=== PATIENT | female | born 1960 | race Caucasian/White ===

== ENCOUNTER 2017-12-15 15:30 | Outpatient (CLI) | payer MEDICARE, OTHER ==
[2017-12-15 17:15] LABS: #Basophils 0.1 thou/uL (0.0-0.2); #Eosinphils 0.2 thou/uL (0.0-0.7); #Lymphocytes 1.7 thou/uL (1.20-3.40); #Monocytes 0.5 thou/uL (0.11-0.59); #Neutrophils 2.5 thou/uL (1.40-6.50); %Basophils 1.5 % (0.0-1.0); %Eosinophils 4.7 % (0.0-10.0); %Monocytes 9.9 % (0.0-10.0); %Neutrophils 49.9 % (42.0-75.0); Hemoglobin 13.8 g/dL (12.0-16.0); Mean Corpuscular HGB CONC 31.9 g/dL (32.0-36.0); Mean Corpuscular Hemoglobin 31.9 pg (27.0-31.0); Mean Platelet Volume 9.1 fL (7.4-10.4); Platelet Count 207 thou/uL (130-400); RBC Distribution Width 14.2 % (11.5-14.5); Red Blood Cell (RBC) Count 4.33 mill/uL (4.20-5.40); White Blood Cell (WBC) Count 5.1 thou/uL (4.8-10.8)
[2017-12-15 17:28] LABS: Bilirubin Negative (Negative); Blood, Urine Negative (Negative); Clarity CLEAR (Clear); Glucose, Urine (Dipstick) Negative (Negative); Leukocyte Negative (Negative); Nitrite Negative (Negative); Protein, Urine (Dipstick) Negative (Neg-Trace); Specific Gravity, Urine 1.021 (1.002-1.036); Urobilinogen 0.2 mg/dL (0.2-1.0); pH, Urine 6.5 (5.0-9.0)
[2017-12-15 17:33] LABS: Bacteria/HPF None Seen HPF (None Seen); Hyaline Casts/LPF 0-3 HYALINE CAST LPF (0-3 Hyaline); Pathc Cast-AUWi Flag 0.14 (0-2.49); RBC/HPF 0-3 HPF (0-3); Squamous Epithelial 0-3 HPF (0-3); WBC/HPF 0-3 HPF (0-3)
== END 2017-12-15 15:31 | disposition home or self-care (01) ==
LOC: LABBT 15:30
PROVIDERS: ATTEND Orthopaedic Surgery Hand Surgery
DX: Z01.812 Encounter for preprocedural laboratory examination (principal); S60.351A Superficial foreign body of right thumb, initial encounter; M18.0 Bilateral primary osteoarthritis of first carpometacarpal joints
CPT/HCPCS: 81001; 85025

== ENCOUNTER 2017-12-17 06:22 | Day surgery (SDC) | payer MEDICARE, OTHER ==
[2017-12-15 15:49] VITALS: BMI 18.3
[2017-12-17] MEDS ORDERED: Bupivacaine PF 0.5% 30 ML VIAL ONE (08:18)
[2017-12-17] MEDS ORDERED: Betamet Acet/Betamet Na Ph 30 MG/5 ML VIAL ONE (08:18)
[2017-12-17] MEDS ORDERED: Bacitracin Zinc Ointment 30 gm TUBE ONE (08:18)
[2017-12-17] MEDS ORDERED: CEFAZOLIN/Water 2 GM/20 ML SYRINGE ONE (08:25)
[2017-12-17] MEDS ORDERED: Fentanyl 100 MCG/2 ML VIAL ONE ×2 (08:27→10:09)
[2017-12-17] MEDS ORDERED: Ketorolac Tromethamine 30 MG/ML VIAL ONE ×2 (10:04→15:15)
--- NOTE | 2017-12-17 10:57 | RAD ---
LEFT WRIST: Date: 12/17/17 Two fluoroscopic images taken in OR. INDICATION: Fluoroscopic imaging during thumb injection. Joint injection under fluoroscopy. FINDINGS/IMPRESSION: Images show needle overlying the first carpometacarpal joint. POS: ANABEL
--- NOTE | 2017-12-17 10:58 | RAD ---
RIGHT WRIST: Date: 12/17/17 One fluoroscopic image obtained from OR. INDICATION: Right thumb/joint injection. FINDINGS/IMPRESSION: Image shows needle overlying the right first carpometacarpal joint. POS: GUY
[2017-12-17] MEDS ORDERED: HYDROcodone/Acetaminophen 5/325 mg Tablet ONE (11:14)
--- NOTE | 2017-12-17 12:57 | OP ---
DATE OF PROCEDURE: 12/17/2017 PREOPERATIVE DIAGNOSES: 1. Right thumb distal phalanx foreign body granuloma versus callus. 2. 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 PROCEDURES PERFORMED: 1. Right and left thumb carpometacarpal joint injection with 1 mL of Celestone, 0.5% Marcaine, no ep inephrine. 2. Right thumb excisional biopsy of foreign body granuloma with callus over knees. No foreign body sent . TOURNIQUET TIME: Right side 5 minutes. ESTIMATED BLOOD LOSS: Less than 5 mL. ANESTHESIA: General LMA technique. C-ARM USED: Yes. SURGEON: Obed Olvera MD DESCRIPTION OF PROCEDURE: After successful general endotracheal anesthesia, both sides were prepped and draped. First, the left was approached and the table was turned 90 degrees to get the C-arm in a dequate position. We identified the joint under C-arm, identified the needle inside the joint under C-arm in the frontal-sagittal plane and made an injection with 1 mL of Celestone and 0.5 mL of Marcai ne. We made the same approach and injection on the right side, after turning the table 90 degrees to take great advantage of the C-arm intraoperative. Both sides confirmed intra-articular injection site fo r the needle. We exsanguinated the limb, inflated tourniquet to 250 mmHg pressure. 3 to 3.5 mm x 1 to 1.5 mm foreign body area, excised it completely and dissected down to well beyond the subcutaneous fat, fou nd no true foreign body, but removed the entire granulomatous area, which appeared to have external c allus. We then deflated the tourniquet, obtained hemostasis, and put 2 mL of Celestone in the cavity , and then closed it with interrupted simple 5-0 nylon. Bulky dressing was applied and the patient l eft the operating room without evidence of anesthetic or operative complication.
[2017-12-17] MEDS ORDERED: Lidocaine 1% PF 5 ML VIAL ONE (15:15)
[2017-12-17] MEDS ORDERED: PROPOFOL 200 MG/20 ML VIAL ONE (15:15)
[2017-12-17] MEDS ORDERED: Ondansetron HCl/PF 4 MG/2 ML Vial ONE (15:15)
[2017-12-17] MEDS ORDERED: ePHEDrine/0.9% NaCl/PF SYRINGE 50 mg/10 ml ONE (15:15)
[2017-12-17] MEDS ORDERED: Dexamethasone 20 MG/5 ML VIAL ONE (15:15)
--- NOTE | 2017-12-27 05:54 | PQF ---
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 Check the appropriate box and include in your discharge summary/addendum. [ ] [ ] [ ] Please check this box if this does not apply to this patient [ ] Unable to determine [ ] Other diagnosis/procedure: Review the following information and exercise your independent professional judgment in responding to the clarification. Based upon the clinical findings, risk factors, and treatment, please clarify if you are treating one of the above probable or suspected diagnoses. Physician Signature: Date Time MTDD
== END 2017-12-17 11:39 | disposition home or self-care (01) ==
LOC: SDC 06:22
PROVIDERS: ATTEND Orthopaedic Surgery Hand Surgery
PROC: 3E0U33Z Introduction of Anti-inflammatory into Joints, Percutaneous Approach (ICD-10-PCS; principal; 2017-12-17)
PROC: 0JBJ0ZZ Excision of Right Hand Subcutaneous Tissue and Fascia, Open Approach (ICD-10-PCS; 2017-12-17)
DX: L92.9 Granulomatous disorder of the skin and subcutaneous tissue, unspecified (principal); L84 Corns and callosities; M18.0 Bilateral primary osteoarthritis of first carpometacarpal joints; E07.9 Disorder of thyroid, unspecified; G98.8 Other disorders of nervous system; Z87.891 Personal history of nicotine dependence; Z79.899 Other long term (current) drug therapy
CPT/HCPCS: 76000; 88305; 96372; 96374; 96375; J0131; J0702; J1100; J1885; J2001; J2405; J2704; J3010; S0020